=== PATIENT | female | born 1950 | race Caucasian/White ===

== ENCOUNTER → 2018-04-14 | Outpatient (CLI) | payer MEDICARE, OTHER ==
[~2018-04-14] MED LIST: CALC200 PO; FISH OIL1 CAP PO; GLUCOSAMINE CHONDROI PO; LYSI500C3 PO; SYSTANEPT OP; VITAMIN E PO
--- NOTE | 2018-04-14 12:20 | RADIOLOGY IMAGING REPORT ---
FACILITY: [facility] - [place] PATIENT NAME: Shy Oconnor : 1950 MR: [id number] V: [id number] EXAM DATE: ORDERING PHYSICIAN: LAURIE MENDOZA TECHNOLOGIST: Location: [facility] - [place] Patient: Shy Oconnor : 1950 Visit/Account:[id number] Date of Sevice: 04/14/2018 EXAMINATION: Right ankle 3 views HISTORY: Injury, pain, swelling for one week. COMPARISON: None. FINDINGS: Bones of the right ankle demonstrate normal alignment. No evidence of fracture or dislocation. Joint space is preserved along the ankle mortise. Small plantar calcaneal spur. Soft tissue swelling surrounds the right ankle, greatest overlying the lateral malleolus. IMPRESSION: No acute osseous findings at the right ankle. Lateral soft tissue swelling. Report Dictated By: Carl Fairbanks MD at 04/14/2018 12:15 PM Report E-Signed By: Carl Fairbanks MD at 04/14/2018 12:16 PM WSN:[id number]
== END ==
LOC: RAD 11:45
PROVIDERS: ATTEND Family Medicine
DX: M77.31 Calcaneal spur, right foot (principal); M25.471 Effusion, right ankle

== ENCOUNTER → 2018-07-12 | Outpatient (CLI) | payer MEDICARE, OTHER ==
--- NOTE | 2018-07-12 16:34 | RADIOLOGY IMAGING REPORT ---
FACILITY: [facility] PATIENT NAME: MAYLIN PRADO : [id number] MR: [id number] V: [id number] EXAM DATE: [id number] ORDERING PHYSICIAN: LAURIE MENDOZA TECHNOLOGIST: Alisa Bey PROCEDURE:BILATERAL DIGITAL SCREENING MAMMOGRAM WITH CAD ASSISTED INTERPRETATION & 3D TOMOSYNTHESIS COMPARISON:Prior mammograms 10/14/16, 09/25/15, 07/18/14, 07/05/14, 05/25/13, 05/10/13. INDICATIONS:SCREENING FINDINGS: Moderately heterogeneous fibroglandular tissue is seen throughout the breasts. The parenchymal pattern has remained stable allowing for difference in mammographic technique & patient positioning. There is no evidence of malignant appearing mass, malignant appearing calcifications or other secondary sign of malignancy in either breast. DIAGNOSTIC CATEGORY 1--NEGATIVE. RECOMMENDATIONS: ROUTINE MAMMOGRAM AND CLINICAL EVALUATION. IMPRESSION: BIRADS 1: Negative. No significant abnormality is seen. Dictated by: Torrie Nuñez M.D. on 07/12/2018 at 14:34 Transcribed by: PHIL on 07/12/2018 at 14:39 Approved by: Torrie Nuñez M.D. on 07/12/2018 at 16:32 [facility]
== END ==
LOC: MAMO 00:31
PROVIDERS: ATTEND Family Medicine
DX: Z12.31 Encounter for screening mammogram for malignant neoplasm of breast (principal)
CPT/HCPCS: 77063; 77067

== ENCOUNTER → 2018-09-14 | Outpatient (CLI) | payer MEDICARE, OTHER ==
[~2018-09-14] MED LIST changes: +ARGI500C9 PO; +BARIUM SULFATE 176 GM BTL PO ONE; +BARIUM SULFATE 340 GM POWD ONE; +CHOL10005 PO; +FISH1CAP PO; +MELA10TA7; +UBID100C48 PO; +VITA-175 PO
--- NOTE | 2018-09-14 15:28 | RADIOLOGY IMAGING REPORT ---
[place] [facility] [place]: Shy Oconnor : 1950 MR: [id number] V: [id number] EXAM DATE: ORDERING PHYSICIAN: LAURIE MENDOZA TECHNOLOGIST: Location: Patient: Shy Oconnor : 1950 Visit/Account:[id number] Date of Sevice: 09/14/2018 Exam type: UPPER GI SERIES W/O AIR History: Feels like food getting stuck in throat for 2 to 3 months Comparison: None. Findings: Double contrast upper GI series was performed with thick and thin barium and air contrast. There is mild narrowing at the lower esophageal sphincter although a 12 mm barium tablet did pass freely into the stomach. There is a mild impression along the posterior aspect of the cervical esophagus from pr obable cricopharyngeus muscle. There did appear to be mild mucosal irregularity seen along the anter ior cervical esophagus in this location. Small hiatal hernia was noted. There was a small to modera te amount of gastroesophageal reflux. No abnormality the stomach duodenal bulb or duodenal C-loop wa s seen. The fluoroscopy dose area product was 662.55 micro-Vilchis per meter squared IMPRESSION: 1. Mild narrowing at the lower esophageal sphincter although 12 mm barium tablet did pass freely int o the stomach There is a mild impression along the posterior aspect of the cervical esophagus most likely from the cricopharyngeus muscle. There did appear to be mild mucosal irregularity along the anterior cervical esophagus in this location therefore endoscopy may be helpful for further evaluation Small hiatal hernia with a small to moderate amount of gastroesophageal reflux Report Dictated By: Torrie Nuñez MD at 09/14/2018 3:02 PM Report E-Signed By: Torrie Nuñez MD at 09/14/2018 3:21 PM WSN:[id number]
== END ==
LOC: RAD 01:16
PROVIDERS: ATTEND Family Medicine
DX: K21.9 Gastro-esophageal reflux disease without esophagitis (principal); K44.9 Diaphragmatic hernia without obstruction or gangrene
CPT/HCPCS: 74240

== ENCOUNTER 2018-10-04 00:25 | Day surgery (SDC) | payer MEDICARE, OTHER ==
[~2018-10-04] VITALS: Ht 157.5 cm; Wt 59.4 kg
[~2018-10-04 00:25] MED LIST changes: -BARIUM SULFATE 176 GM BTL PO ONE; -BARIUM SULFATE 340 GM POWD ONE; +CRAN1CAP14 PO; +RED600TA PO
[2018-10-04 06:33] VITALS: BP 142/89
[2018-10-04] MEDS ORDERED: PROPOFOL EMUL(*) 10MG/ML 20 ML 20 ML ONE ×2 (07:02→07:35)
[2018-10-04] MEDS ORDERED: LIDOCAINE/SOD BICARB 8.4% SYR ID ONE (07:25)
[2018-10-04] MEDS ORDERED: NORMOSOL R SOLN(*) 1000 ML BAG 1,000 ML IV PRN (07:25)
[2018-10-04 08:01] VITALS: BP 113/83
--- NOTE | 2018-10-04 08:01 | NUR ---
0801- PT BROUGHT TO STEP DOWN, BAY 1, PT IS AWAKE BUT REMAINS DROWSY, PT ON 3LPM VIA HF NC, PT MAINTAINING SATS, RESPIRATIONS AND AIRWAY, WILL CONTINUE TO MONITOR, PT IN LL POSITION, VSS, DANIELLE- SO AT BEDSIDE, SBAR REPORT FROM DR. GARCIA AND Aleisha SANTOS RN 0805- DECREASE O2 TO 2LPM VIA HF [place] 0807- DR. DUCKWORTH AT BEDSIDE
--- NOTE | 2018-10-04 08:11 | NUR ---
0811- PT TOLERATING CRANBERRY/APPLE JUICE
--- NOTE | 2018-10-04 08:12 | Short(Outpt) Discharge Summary ---
Discharge Summary Reason for Hosp/Final Diag: (1) Dysphagia Status: Chronic Hospital Course & Plan: EGD with esophageal dilation and colonoscopy completed without problems. (2) Colon cancer screening Status: Chronic Departure Discharge to: Home, Self Care Discharge Instructions Home Meds Reported Medications Cranberry Conc/Ascorbic Acid (CRANBERRY + VIT C SOFTGEL) 1 Each Capsule, 1 EACH PO DAILY, CAPSULE 09/20/18 Red Yeast Rice (RED YEAST RICE) 600 Mg Tablet, 600 MG PO BID 09/20/18 Melatonin (Melatonin) 10 Mg Tab.rapdis, QHS 08/01/18 Cholecalciferol (Vitamin D3) (VITAMIN D3) 1,000 Unit Tablet, 2000 UNIT PO DAILY, TAB 08/01/18 Vitamin B Complex (B COMPLEX) 1 Each Tablet, 1 EACH PO QDAY 08/01/18 Arginine (L-ARGININE) 500 Mg Capsule, 500 MG PO QHS, CAPSULE 08/01/18 Fish,Saf,Flx,Brg Oils/O3,6,9#2 ([id number] OIL SOFTGEL) 1 Each Capsule, 1 EACH PO BID, CAPSULE 08/01/18 Ubidecarenone (COQ-10) 100 Mg Capsule, 100 MG PO QHS, CAPSULE 08/01/18 [Glucosamine Chondroi] No Conflict Check, 1 TAB PO BID 09/06/07 [Vitamin E] No Conflict Check, 1 TAB PO DAILY 09/06/07 Calcium Citrate (Citracal) 200 Mg Tab, 200 MG PO BID 09/06/07 Diet: Regular Activity: As Tolerated Special Instructions: Your upper endoscopy was completed without problems. You have a mild narrowing where your esophagus empties into your stomach but no other abnormalities. I dilated your esophagus so we'll see if you symptoms with pills improve or not. Your colonoscopy was completed without problems as well and your prep was excellent (Good Job!!). I didn't find any polyps or cancers in your colon or rectum. I recommend that your next colonoscopy be in 10 years. Problem Qualifiers (1) Dysphagia: Dysphagia type: pharyngeal phase Qualified Codes: R13.13 - Dysphagia, pha ryngeal phase RAMSES DUCKWORTH MD Oct 04, 2018 08:12
--- NOTE | 2018-10-04 08:12 | NUR ---
0812- AR REPORT GIVEN TO Viji CAI RN
[2018-10-04 08:15] VITALS: BP 115/82
[2018-10-04 08:27] VITALS: BP 138/95
[2018-10-04 08:29] VITALS: BP 136/96
== END 2018-10-04 08:45 | disposition home or self-care (01) ==
LOC: OR 00:25
PROVIDERS: ATTEND Surgery
DX: Z12.11 Encounter for screening for malignant neoplasm of colon (principal); K57.30 Diverticulosis of large intestine without perforation or abscess without bleeding; K22.2 Esophageal obstruction
CPT/HCPCS: 00813; 43248; C1769; G0121; J2704